=== PATIENT | female | born 1975 | race Caucasian/White ===

== ENCOUNTER 2018-03-31 18:41 | Emergency (ER) | payer OTHER ==
[~2018-03-31] VITALS: Ht 165.1 cm; Wt 70.3 kg
[2018-03-31] MEDS ORDERED: AUGMENTIN 875-1 EACH PO (20:59)
[2018-03-31] MEDS ORDERED: CIPRO HC OTIC S10 ML OTIC (20:59)
[2018-03-31 21:10] VITALS: BP 169/101
== END 2018-03-31 21:13 | disposition home or self-care (01) ==
LOC: M.ERS 18:41
DX: H60.91 Unspecified otitis externa, right ear (principal); H66.91 Otitis media, unspecified, right ear; F17.210 Nicotine dependence, cigarettes, uncomplicated